=== PATIENT | female | born 1990 | race African-American/Black ===

== ENCOUNTER 2018-05-04 12:50 | Emergency (ER) | payer MEDICAID ==
[~2018-05-04] VITALS: Ht 167.6 cm; Wt 59.0 kg
[2018-05-04] MEDS ORDERED: KETOROLAC 60MG/2ML VIAL IM STA (14:30)
[2018-05-04 15:24] LABS: BASOPHILS % 0.2 % (0.0-2.0); HEMATOCRIT. 39.4 % (36.0-48.0); LYMPHOCYTES % 34.1 % (20.0-50.0); MEAN CORPUSCULAR HEMOGLOBIN 30.4 pg (28.0-32.0); MEAN CORPUSCULAR VOLUME 92.2 fL (81.0-99.0); MEAN PLATELET VOLUME 7.8 fl (7.4-10.4); MONOCYTES % 7.5 % (2.0-8.0); NEUTROPHILS % 57.2 % (40.0-76.0); PLATELET 219 x1000/uL (130-400); RED BLOOD CELL COUNT 4.27 mill/uL (4.2-5.4); RED CELL DISTRIBUTION WIDTH 12.3 % (11.6-14.6)
[2018-05-04 15:32] LABS: CHLORIDE 104 mEq/L (98-107)
[2018-05-04 15:44] LABS: CLARITY URINE CLEAR (CLEAR); COLOR URINE YELLOW (YELLOW); KETONES URINE TRACE (NEGATIVE); LEUKOCYTE ESTERASE URINE NEGATIVE (NEGATIVE); NITRITE URINE NEGATIVE (NEGATIVE); OCCULT BLOOD URINE NEGATIVE (NEGATIVE); PH URINE 6.5 (4.5-8.0); PROTEIN URINE NEGATIVE (NEGATIVE); SPECIFIC GRAVITY URINE 1.026 (1.005-1.030)
[2018-05-04 18:30] VITALS: BP 111/77
== END 2018-05-04 18:33 | disposition home or self-care (01) ==
LOC: ER 14:53
DX: R10.2 Pelvic and perineal pain (principal); N83.202 Unspecified ovarian cyst, left side; F17.210 Nicotine dependence, cigarettes, uncomplicated; Z98.890 Other specified postprocedural states
CPT/HCPCS: 36415; 76700; 76830; 76856; 81025; 99284

== ENCOUNTER 2019-03-31 08:27 | Emergency (ER) | payer MEDICAID ==
[~2019-03-31] VITALS: Ht 165.1 cm; Wt 54.0 kg
[2019-03-31] MEDS ORDERED: SODIUM CHLORIDE 0.9% 1,000 ML IV ONE (11:07)
[2019-03-31] MEDS ORDERED: ONDANSETRON HCL 4MG/2ML INJ IV ONE (11:15)
[2019-03-31] MEDS ORDERED: MORPHINE SULFATE 4 MG/ML CPJ (NOT FOR IM USE) IV ONE (11:15)
[2019-03-31 11:32] LABS: BASOPHILS % 0.3 % (0.0-2.0); EOSINOPHILS % 0.4 % (0.0-5.0); HEMATOCRIT. 38.4 % (36.0-48.0); HEMOGLOBIN. 12.9 g/dL (12.0-16.0); LYMPHOCYTES % 19.9 % (20.0-50.0); MEAN CORPUSCULAR VOLUME 92.4 fL (81.0-99.0); MEAN PLATELET VOLUME 7.4 fl (7.4-10.4); MONOCYTES % 5.1 % (2.0-8.0); NEUTROPHILS % 74.3 % (40.0-76.0); PLATELET 260 x1000/uL (130-400); RED BLOOD CELL COUNT 4.15 mill/uL (4.2-5.4); RED CELL DISTRIBUTION WIDTH 12.9 % (11.6-14.6)
[2019-03-31 11:40] LABS: CHLORIDE 105 mEq/L (98-107)
[2019-03-31 11:45] LABS: CLARITY URINE CLEAR (CLEAR); COLOR URINE YELLOW (YELLOW); KETONES URINE NEGATIVE (NEGATIVE); LEUKOCYTE ESTERASE URINE NEGATIVE (NEGATIVE); NITRITE URINE NEGATIVE (NEGATIVE); OCCULT BLOOD URINE NEGATIVE (NEGATIVE); PROTEIN URINE NEGATIVE (NEGATIVE); SPECIFIC GRAVITY URINE 1.022 (1.005-1.030)
[2019-03-31 12:05] LABS: B-HCG QUANTITATIVE 50962 mIU/mL (<3)
[2019-03-31 12:14] LABS: *AMPHETAMINES SCREEN URINE NEGATIVE (NEGATIVE); *BARBITURATES SCREEN URINE NEGATIVE (NEGATIVE); *BENZODIAZEPINES SCREEN URINE NEGATIVE (NEGATIVE); *COCAINE SCREEN URINE NEGATIVE (NEGATIVE)
[2019-03-31 12:15] LABS: METHADONE URINE SCREEN NEGATIVE (NEGATIVE); OPIATES URINE SCREEN NEGATIVE (NEGATIVE); PHENCYCLIDINE URINE SCREEN NEGATIVE (NEGATIVE)
[2019-03-31 12:21] LABS: CANNABINOID URINE SCREEN PRESUMTIVE POSITIVE (NEGATIVE)
[2019-03-31 12:59] VITALS: BP 101/50
== END 2019-03-31 13:02 | disposition home or self-care (01) ==
LOC: ER 08:27
DX: O26.891 Other specified pregnancy related conditions, first trimester (principal); R10.31 Right lower quadrant pain; O34.81 Maternal care for other abnormalities of pelvic organs, first trimester; Z3A.01 Less than 8 weeks gestation of pregnancy; N83.201 Unspecified ovarian cyst, right side
CPT/HCPCS: 36415; 76801; 76817; 80053; 80305; 81003; 81025; 84702; 85025; 85610; 86850; 86900; 86901; 96360; 99284; J7030

== ENCOUNTER 2019-10-16 22:16 | Observation (INO) | payer MEDICAID ==
[~2019-10-16] VITALS: Ht 165.1 cm; Wt 63.0 kg
[~2019-10-16 22:16] MED LIST: PREN-118 PO
[2019-10-17] MEDS: LACTATED RINGERS 1,000 ML IV SCH ×2 (00:03→02:53)
[2019-10-17 00:29] LABS: CLARITY URINE CLEAR (CLEAR); COLOR URINE YELLOW (YELLOW); KETONES URINE NEGATIVE (NEGATIVE); LEUKOCYTE ESTERASE URINE NEGATIVE (NEGATIVE); NITRITE URINE NEGATIVE (NEGATIVE); OCCULT BLOOD URINE NEGATIVE (NEGATIVE); PH URINE 6.5 (4.5-8.0); PROTEIN URINE NEGATIVE (NEGATIVE); SPECIFIC GRAVITY URINE 1.012 (1.005-1.030)
[2019-10-17] MEDS: TERBUTALINE SULFATE 1MG/ML VIAL SUBCUT PRN ×2 (01:59→02:51)
[2019-10-17] MEDS ORDERED: DOCU-138 PO (03:19)
[2019-10-17] MEDS ORDERED: FERR-71 PO (03:19)
[2019-10-17] MEDS ORDERED: CHOL40002 MT (03:19)
[2019-10-17] MEDS ORDERED: PREN-176 PO (03:19)
[2019-10-17] MEDS ORDERED: C,E,1CAP2 PO (03:19)
== END 2019-10-17 05:40 | disposition home or self-care (01) ==
LOC: 8 EST LDRP 22:16
PROVIDERS: ADMIT Obstetrics & Gynecology; ATTEND Obstetrics & Gynecology
DX: O26.893 Other specified pregnancy related conditions, third trimester (principal); R10.30 Lower abdominal pain, unspecified; O99.89 Other specified diseases and conditions complicating pregnancy, childbirth and the puerperium; M54.5 Low back pain; O34.63 Maternal care for abnormality of vagina, third trimester; Z3A.34 34 weeks gestation of pregnancy
CPT/HCPCS: 81003; 82731; 96360; 96361; 96372; 99281; G0378; J3105

== ENCOUNTER 2019-11-08 10:06 | Observation (INO) | payer MEDICAID ==
[~2019-11-08] VITALS: Ht 165.1 cm; Wt 63.0 kg
[~2019-11-08 10:06] MED LIST changes: +C,E,1CAP2 PO; +CHOL40002 MT; +DOCU-138 PO; +FERR-71 PO; +PREN-176 PO
[2019-11-08] MEDS ORDERED: LACTATED RINGERS 1,000 ML IV PRN (11:30)
== END 2019-11-08 12:25 | disposition home or self-care (01) ==
LOC: 8 EST LDRP 10:06
PROVIDERS: ADMIT Obstetrics & Gynecology; ATTEND Obstetrics & Gynecology
DX: O62.9 Abnormality of forces of labor, unspecified (principal); Z3A.38 38 weeks gestation of pregnancy
CPT/HCPCS: 59025; 96360; G0378; J7120; 99281

== ENCOUNTER 2020-05-06 12:46 | Emergency (ER) | payer MEDICAID ==
[~2020-05-06] VITALS: Ht 167.6 cm; Wt 58.0 kg
[2020-05-06 14:40] LABS: BASOPHILS % 0.3 % (0.0-2.0); EOSINOPHILS % 2.3 % (0.0-5.0); HEMATOCRIT. 35.8 % (36.0-48.0); MEAN CORPUSCULAR HEMOGLOBIN 30.3 pg (28.0-32.0); MEAN CORPUSCULAR VOLUME 90.6 fL (81.0-99.0); MEAN PLATELET VOLUME 7.2 fl (7.4-10.4); MONOCYTES % 5.6 % (2.0-8.0); NEUTROPHILS % 65.8 % (40.0-76.0); PLATELET 237 x1000/uL (130-400); RED BLOOD CELL COUNT 3.95 mill/uL (4.2-5.4); RED CELL DISTRIBUTION WIDTH 13.4 % (11.6-14.6)
[2020-05-06 14:47] LABS: CHLORIDE 108 mEq/L (98-107)
[2020-05-06 15:11] LABS: B-HCG QUANTITATIVE 10191 mIU/mL (<3)
[2020-05-06] MEDS ORDERED: PNV1TAB.3 MT (15:28)
[2020-05-06 18:48] VITALS: BP 126/84
== END 2020-05-06 18:48 | disposition home or self-care (01) ==
LOC: ER 12:46
DX: O20.0 Threatened abortion (principal); Z98.890 Other specified postprocedural states; Z91.013 Allergy to seafood; Z3A.00 Weeks of gestation of pregnancy not specified
CPT/HCPCS: 36415; 76801; 80053; 81025; 84702; 85025; 86850; 86900; 93005; 99285

== ENCOUNTER → 2021-10-21 | Emergency (ER) | payer MEDICAID, OTHER ==
[~2021-10-21] VITALS: Ht 165.1 cm; Wt 56.7 kg
[~2021-10-21] MED LIST changes: +ACETAMINOPHEN 325MG TABLET PO NR; +NAPR-681 PO; +ONDA4TAB50 PO; +PNV1TAB.3 MT; +SULF1TAB48 PO
[2021-10-21 01:00] VITALS: BP 116/73
[2021-10-21 04:16] LABS: CLARITY URINE CLEAR (CLEAR); COLOR URINE YELLOW (YELLOW); KETONES URINE TRACE (NEGATIVE); LEUKOCYTE ESTERASE URINE 1+ (NEGATIVE); NITRITE URINE NEGATIVE (NEGATIVE); OCCULT BLOOD URINE NEGATIVE (NEGATIVE); PROTEIN URINE TRACE (NEGATIVE); SPECIFIC GRAVITY URINE 1.029 (1.005-1.030)
== END ==
LOC: ER 00:41
DX: N39.0 Urinary tract infection, site not specified (principal); R19.7 Diarrhea, unspecified; R11.10 Vomiting, unspecified; Z98.890 Other specified postprocedural states; Z79.899 Other long term (current) drug therapy
CPT/HCPCS: 81003; 81025; 99283

== ENCOUNTER 2023-09-17 19:55 | Emergency (ER) | payer MEDICAID, OTHER ==
[~2023-09-17] VITALS: Ht 167.6 cm; Wt 57.0 kg
[~2023-09-17 19:55] MED LIST changes: -ACETAMINOPHEN 325MG TABLET PO NR
[2023-09-17 20:50] VITALS: BP 106/68; PULSE 78; RESP 16; TEMP 98; O2SAT 98
== END 2023-09-18 01:37 | disposition left against medical advice (07) ==
LOC: ER 20:04
DX: R52 Pain, unspecified (principal); Z53.21 Procedure and treatment not carried out due to patient leaving prior to being seen by health care provider